=== PATIENT | male | born 1935 | race Hispanic/Latino ===

== ENCOUNTER → 2021-01-02 | Outpatient (CLI) | payer OTHER | END | disposition home or self-care (01) | LOC: SHCH 07:35 | PROVIDERS: ATTEND Internal Medicine Cardiovascular Disease | DX: I35.1 Nonrheumatic aortic (valve) insufficiency (principal); I65.23 Occlusion and stenosis of bilateral carotid arteries; I70.0 Atherosclerosis of aorta; E78.5 Hyperlipidemia, unspecified | CPT/HCPCS: 93306; 93356; 93880; 93925; 93978 ==

== ENCOUNTER 2023-09-22 00:22 | Emergency (ER) | payer MEDICARE ==
[~2023-09-22] VITALS: Ht 167.6 cm; Wt 49.4 kg
[~2023-09-22 00:22] MED LIST: ACET-66 PO; AMLO-257 PO; ASPI-1197 PO; BUSP5TAB3 PO; DOCU100C33 PO; DONE-53 PO; FAMO20TA8 PO; MELA5TAB66 PO; SENN8.6T32 PO; TRAM50TA4 PO
[2023-09-22] MEDS ORDERED: EPINEPHRINE 1MG/10ML(1:10,000) 0.1 MG/ML SYG IVP ONE (00:23)
[2023-09-22 00:32] VITALS: PULSE 113; O2SAT 91
[2023-09-22] MEDS: NOREPINEPHRINE BITARTRATE 1 MG/1 ML ML IV ONE (00:36)
[2023-09-22] MEDS: PHENYLEPHRINE HCL 10 MG/ML 1ML VIAL IV ONE (00:36)
[2023-09-22] MEDS: VASOPRESSIN 20 UNITS/ML 1ML VIAL ONE (00:36)
[2023-09-22 01:00] VITALS: BP 91/65; O2SAT 82
[2023-09-22] MEDS: EPINEPHRINE 1 MG/ML 30ML VIAL IJ ONE (01:00)
[2023-09-22] MEDS: MORPHINE 4 MG SYG IVP ONE (01:00)
[2023-09-22 01:30] VITALS: PULSE 30; RESP 0
[2023-09-22] MEDS: MORPHINE 4 MG SYG ONE (02:45)
== END 2023-09-22 04:45 ==
LOC: EDH 00:22
DX: I46.9 Cardiac arrest, cause unspecified (principal); E78.00 Pure hypercholesterolemia, unspecified; I10 Essential (primary) hypertension; K21.9 Gastro-esophageal reflux disease without esophagitis; F03.90 Unspecified dementia, unspecified severity, without behavioral disturbance, psychotic disturbance, mood disturbance, and anxiety; Z79.82 Long term (current) use of aspirin; Z79.899 Other long term (current) drug therapy
CPT/HCPCS: 99285; 96374; 93005; 92950; 31500; J3490 ×4; J0171 ×2; J2270; J2371; A9900; 94002